=== PATIENT | male | born 1965 | race African-American/Black ===

== ENCOUNTER 2021-10-11 13:03 | Emergency (ER) | payer MEDICAID ==
[~2021-10-11] VITALS: Ht 177.8 cm; Wt 108.0 kg
[2021-10-11 13:27] VITALS: BP 125/86
[2021-10-11] MEDS ORDERED: KETOROLAC 60MG/2ML VIAL IM STA (16:33)
[2021-10-11] MEDS ORDERED: TRAM50TA3 PO (17:47)
[2021-10-11] MEDS ORDERED: NAPR-681 PO (17:47)
[2021-10-11] MEDS ORDERED: GABA-532 PO (18:17)
== END 2021-10-11 19:02 | disposition home or self-care (01) ==
LOC: ER 13:03
DX: M54.42 Lumbago with sciatica, left side (principal)
CPT/HCPCS: 96372; 99283; J1885